=== PATIENT | female | born 1970 | race Hispanic/Latino ===

== ENCOUNTER 2019-08-09 06:27 | Emergency (ER) | payer SELFPAY ==
[~2019-08-09] VITALS: Ht 162.6 cm; Wt 86.2 kg
--- OUTSIDE RECORDS SUMMARY | 2019-08-09 08:22 | XMS ---
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 Kandy has no Care Guidelines for this patient. Anh VISIT COUNT (12 MO.) [address] TOTAL 2 NOTE: Visits indicate total known visits. ED/UCC VISIT TRACKING (12 MO.) [facility] COMPLAINT: - DIZZINESS, WEAKNESS, COUGH 08/08/2019 11:14 [facility] OR TYPE: Emergency DIAGNOSES: - VOMITING HEADACHE COUGH WEAKNESS FEVER - Other general symptoms and signs INPATIENT VISIT TRACKING (12 MO.) No inpatient visits to display in this time frame [email or web address]
== END 2019-08-09 09:47 | disposition home or self-care (01) ==
LOC: ED 06:27
DX: B34.9 Viral infection, unspecified (principal)
CPT/HCPCS: 71046; 80053; 85025; 99283-25